=== PATIENT | male | born 1995 | race Caucasian/White ===

== ENCOUNTER 2016-11-24 21:43 | Emergency (ER) | payer BC, OTHER ==
[2016-11-24 21:52] VITALS: BP 143/76
[2016-11-24] MEDS ORDERED: METHYLPREDNISOLONE ACETATE 80 MG/ML VIAL IM ONE (22:07)
[2016-11-24] MEDS ORDERED: DEXAMETHASONE SOD PHOSPHATE 10 MG/ML VIAL IM ONE (22:07)
[2016-11-24] MEDS ORDERED: DEXAMETHASONE SOD PHOSPHATE 10 MG/ML VIAL ONE (22:12)
[2016-11-24] MEDS ORDERED: METHYLPREDNISOLONE ACETATE 80 MG/ML VIAL ONE (22:12)
--- NOTE | 2016-11-24 22:16 | ERNOTE ---
Time Seen by Provider: 11/24/16 22:01 Stated Complaint: ASTHMA ATTACK Presenting Symptoms:: other - asthma exacerbation Source: patient Exam Limitations: no limitations Immunizations: IMMUNIZATION HX Immunizations Up to Date Yes History of Influenza Vaccine No Hx Pneumococcal Vaccination No Allergies/Adverse Reactions: Allergies penicillin G Allergy (Verified 11/24/16 21:47) Home Medications: HOME MEDICATIONS Albuterol Sulfate [Proventil Hfa] 6.7 gm IH PRN PRN 11/24/16 [Last Taken Unknown ] Cetirizine HCl [Zyrtec] 10 mg PO DAILY 11/24/16 [Last Taken Unknown] Mesalamine [Asacol Hd] 800 mg PO TID 11/24/16 [Last Taken Unknown] Montelukast Sodium [Singulair] 10 mg PO DAILY 11/24/16 [Last Taken Unknown] - History of Present Ilness Narrative: Pt has been exposed to anita conditions and cool are for a few days. Today he has had shortness of breath. He used his inhaler every hour for 3 hours and is still having some chest tightness and shortness of breath although slightly better. Timing: constant Severity: moderate Frequency/Possible Cause: Reports: occasional episodes Modifying Factors - Improves: Reports: albuterol Review of Systems - Review of Systems Constitutional: Absent: recent illness, fever EYE: Present: no symptoms reported ENT: Present: no symptoms reported Respiratory: Present: See HPI Cardiology: Absent: chest pain Gastrointestinal/Abdominal: Absent: nausea, vomiting Genitourinary: Present: no symptoms reported Musculoskeletal: Present: no symptoms reported Skin: Present: no symptoms reported Neurological: Present: no symptoms reported Endocrine: Present: no symptoms reported Hematologic/Lymphatic: Present: no symptoms reported Psych: Present: no symptoms reported - Patient's Past Medical History Patient History - Medical: No pertinent hx Patient History - Cardiac/Respiratory: Asthma, Pneumonia, Other Patient History - Cancer: No Hx of Cancer Patient History - Surgical Procedures: Ear Tubes Patient History - Other: None - Social History Living Situations: home Abuse History: No History of abuse Psych History: No pertinent hx Smoking Status: Never smoker Alcohol Use: none Drug Use: none - Immunizations Immunizations Up to Date: Yes Hx Pneumococcal Vaccination: No History of Influenza Vaccine: No Physical Exam - Physical Exam General Appearance: Present: wd/wn, alert, no apparent distress Head Exam: Present: normal inspection, no evidence of injury Eye Exam: Normal inspection: bilateral Ears, Nose, Throat: Present: nasal congestion, other - PND with mild streaking erythema Neck: Present: normal inspection, nontender Respiratory: Present: no respiratory distress, no accessory muscle use, other - rough lung sounds without express wheezes Cardiovascular/Chest: Present: regular rate, rhythm, no murmur Back Exam: Present: normal inspection, normal range of motion Extremity Exam: Present: normal inspection, normal range of motion Neurological Exam: Present: alert, oriented, normal mood/affect Skin Exam: Present: normal color, warm/dry ED Progress - Vital Signs Patient's Vital Signs:: I have reviewed the patient's vital signs. Vital Signs: Vital Signs 11/24/16 21:45 Temperature 37.7 C H Pulse Rate 92 Respiratory 18 Rate Blood Pressure 143/76 O2 Sat by Pulse 98 Oximetry - Progress/Reassessment Chief Complaint: Asthma Departure - Departure Clinical Impression: Exacerbation of asthma Disposition: Home self-care Condition: Good Instructions: Asthma, Adult, [id number] Additional Instructions: restart your steroid inhaler and use regularly. See your regular doctor if not continuing to improve Referrals: Nicole Pressley MD [Primary Care Provider] -
== END 2016-11-24 22:24 | disposition home or self-care (01) ==
LOC: ER 21:43
DX: J45.901 Unspecified asthma with (acute) exacerbation (principal)